=== PATIENT | female | born 1945 | race Caucasian/White ===

== ENCOUNTER → 2016-08-15 20:02 | Outpatient (CLI) | payer OTHER ==
[2014-04-26 12:19] VITALS: BMI 29.4
[~2016-08-15 20:02] MED LIST: CALCIUM 500 + D1 TAB PO; CARAFATE1 G PO; EFFIENT10 MG PO; LOW DOSE ASPIRI81 M1 PO; PRILOSEC20 MG PO
== END | disposition home or self-care (01) ==
LOC: D.LABREF 20:02
DX: N39.0 Urinary tract infection, site not specified (principal)

== ENCOUNTER → 2016-09-04 11:06 | Outpatient (CLI) | payer MEDICARE ==
[2014-04-26 12:19] VITALS: BMI 29.4
== END | disposition home or self-care (01) ==
LOC: D.LABREF 11:06
DX: R30.0 Dysuria (principal)

== ENCOUNTER → 2016-09-04 19:44 | Outpatient (CLI) | payer MEDICARE ==
[2014-04-26 12:19] VITALS: BMI 29.4
== END | disposition home or self-care (01) ==
LOC: D.LABREF 19:44
DX: R30.0 Dysuria (principal)

== ENCOUNTER 2016-09-10 11:34 | Emergency (ER) | payer MEDICARE ==
[2014-04-26 12:19] VITALS: BMI 29.4
[2016-09-10 12:15] LABS: BASOPHILS 0.1 % (0-2); EOSINOPHILS 1.1 % (0-7); HEMATOCRIT 40.4 % (36.0-48.0); HEMOGLOBIN 13.6 g/dL (12-16); IMMATURE GRANULOCYTES 0.4 % (0-5); LYMPHOCYTES 12.5 % (15-50); MCH 30.7 pg (26.0-34.0); MCHC 33.7 g/dL (31.0-37.0); MCV 91.2 fL (80.0-100.0); MEAN PLATELET VOLUME 11.5 fL (7.4-10.4); MONOCYTES 5.2 % (2-11); NEUTROPHILS 80.7 % (40-80); RBC 4.43 10x6/uL (4.00-5.40); RDW 13.3 % (11.5-14.5); WBC 7.4 10x3/uL (4.8-10.8)
[2016-09-10 12:23] LABS: PLATELET COUNT 191 10x3/uL (130-400)
[2016-09-10 12:23] LABS: APPEARANCE CLEAR (CLEAR); BILIRUBIN NEGATIVE (NEGATIVE); COLOR YELLOW (YELLOW); GLUCOSE NEGATIVE (NEGATIVE); KETONE NEGATIVE (NEGATIVE); LEUKOCYTE ESTERASE NEGATIVE (NEGATIVE); NITRITE NEGATIVE (NEGATIVE); PROTEIN NEGATIVE (NEGATIVE); UROBILINOGEN NORMAL (NORMAL)
[2016-09-10 12:31] LABS: ALBUMIN 3.8 g/dL (3.4-5.0); AMYLASE - SERUM 24 U/L (25-115); CALC OSMOLALITY 285 mosm/kg (275-300); CALCIUM 9.2 mg/dL (8.5-10.1); CARBON DIOXIDE 29.1 mmol/L (21.0-32.0); CHLORIDE - SERUM 107 mmol/L (98-107); CREATININE - SERUM 0.7 mg/dL (0.6-1.3); GLUCOSE 125 mg/dL (74-106); LIPASE 92 U/L (73-393); POTASSIUM - SERUM 3.8 mmol/L (3.5-5.1); SODIUM 143 mmol/L (136-145); UREA NITROGEN 12 mg/dL (7-18); eGFR NON AFRICAN AMERICAN 87 mL/min (90-120)
[2016-09-10 12:58] LABS: ALKALINE PHOSPHATASE 100 U/L (46-116); ALT (SGPT) 34 U/L (10-68); PROTEIN - SERUM 6.9 g/dL (6.4-8.2)
== END 2016-09-10 14:50 | disposition home or self-care (01) ==
LOC: D.ER 11:34
PROVIDERS: Emergency Medicine
DX: R10.9 Unspecified abdominal pain (principal); R52 Pain, unspecified; K29.70 Gastritis, unspecified, without bleeding; K21.9 Gastro-esophageal reflux disease without esophagitis; K58.9 Irritable bowel syndrome, unspecified

== ENCOUNTER 2016-11-03 10:46 | Emergency (ER) | payer MEDICARE ==
[2014-04-26 12:19] VITALS: BMI 29.4
[2016-11-03 14:27] LABS: BASOPHILS 0.2 % (0-2); EOSINOPHILS 2.7 % (0-7); HEMATOCRIT 40.2 % (36.0-48.0); HEMOGLOBIN 13.4 g/dL (12-16); IMMATURE GRANULOCYTES 0.2 % (0-5); LYMPHOCYTES 21.1 % (15-50); MCH 30.6 pg (26.0-34.0); MCHC 33.3 g/dL (31.0-37.0); MCV 91.8 fL (80.0-100.0); MEAN PLATELET VOLUME 11.7 fL (7.4-10.4); MONOCYTES 8.5 % (2-11); NEUTROPHILS 67.3 % (40-80); PLATELET COUNT 182 10x3/uL (130-400); RBC 4.38 10x6/uL (4.00-5.40); RDW 13.1 % (11.5-14.5)
== END 2016-11-03 15:30 | disposition home or self-care (01) ==
LOC: D.ER 10:46
PROVIDERS: Family Medicine
DX: M25.572 Pain in left ankle and joints of left foot (principal); K21.9 Gastro-esophageal reflux disease without esophagitis

== ENCOUNTER 2017-09-23 08:00 | Outpatient (CLI) | payer MEDICARE ==
[2014-04-26 12:19] VITALS: BMI 29.4
== END 2017-09-23 13:20 | disposition home or self-care (01) ==
LOC: D.MAMMO 08:00
DX: N64.59 Other signs and symptoms in breast (principal)

== ENCOUNTER → 2017-09-30 10:53 | Outpatient (CLI) | payer MEDICARE ==
[2014-04-26 12:19] VITALS: BMI 29.4
== END | disposition home or self-care (01) ==
LOC: D.CT 10:53
DX: R07.9 Chest pain, unspecified (principal)